=== PATIENT | female | born 1960 | race Caucasian/White ===

== ENCOUNTER → 2016-12-27 | Outpatient (CLI) | payer OTHER | LOC: FIMAGING 07:29 | PROVIDERS: ATTEND Radiology Diagnostic Radiology | DX: I83.892 Varicose veins of left lower extremity with other complications (principal) ==

== ENCOUNTER 2017-01-26 19:42 | Emergency (ER) | payer OTHER ==
[2017-01-26 19:48] VITALS: RESP 16; TEMP 97.9
--- NOTE | 2017-01-26 19:56 | CPEKG ---
Heart Rate: 79 RR Interval: 759 P-R Interval: 156 QRSD Interval: 84 QT Interval: 400 QTC Interval: 459 P [place]: 46 QRS [place]: 48 T Wave [place]: 44 EKG Severity - NORMAL ECG - EKG Impression: SINUS RHYTHM Electronically Signed By: Macho Baez 27-Jan-2017 16:26:29
--- NOTE | 2017-01-26 20:07 | EDPHY ---
HPI/HX/ROS/PE/MDM Narrative: CHIEF COMPLAINT: Chest pain, near-syncope HPI: The patient is a 56 y/o female arriving with her complaining of intermittent palpitations and dizziness for the last few weeks and new chest pain and near-syncope onset yesterday. She was evaluated by her doctor 2 weeks ago for this and her EKG was normal at that time. She has been on a Holter monitor for the last 8 days and states it has been alarming frequently. Sometimes her dizziness and palpitations are associated with near-syncope that resolves after a few seconds. She did not have associated chest pain until yesterday morning. She describes her pain as sharp at times and says it feels similar to heart burn. The sharp sensation only lasts a few seconds, but she has ongoing pain with breathing and intermittent radiation to her left shoulder. Tums did not alleviate her pain. Tonight, she was sitting on the couch and developed acute onset dizziness and near-syncope. This again resolved after a few seconds, but was associated with chest pain that radiated into her left shoulder, prompting her to come into the ED for evaluation. She does not have symptoms on initial assessment nor can she recreate them with deep breathing. She denies history of cardiac disease, diabetes, hypertension, or other cardiac risk factors. No history of clots or recent long travel. She does note a varicosity of my saphenous vein. She says the health technician told her she might have thrown a clot because the valves are not working. REVIEW OF SYSTEMS: Aside from elements discussed in the HPI, a comprehensive 10-point review of systems was reviewed and is negative. 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 , who is RN, at bedside. Lives in [place]. PCP: Dr. Machado PHYSICAL EXAM: General:Patient is alert, in no acute distress. ENT:Eyes are normal to inspection. ENT inspection normal. Neck: Normal inspection. Full range of motion. Respiratory:No respiratory distress. Breath sounds normal bilaterally. Cardiovascular: Regular rate and rhythm. Strong peripheral pulses. Normal cap refill. Abdomen:The abdomen is nontender to palpation. There are no peritoneal signs. Back: Normal to inspection. No tenderness to palpation. Skin: Normal color. No rash. Warm and dry. Extremities: Normal appearance. Full range of motion. Neuro: Oriented x3. Normal motor function. Normal sensory function. ED Course: IV established. Labs drawn including CBC, CHEM, troponin, d-dimer. Patient placed on quality assurance monitor. Chest x-ray ordered. Contacted [facility] for patient's Holter Monitor report. Since 01/18/17, the monitor has only recorded 4 events. Every event is a sinus rhythm and only one event shows a single PVC. Chest x-ray is negative. EKG shows normal sinus rhythm. D-dimer is negative. Troponin negative. Discussed work up with patient and answered all her questions. She feels ready to go home. I recommended follow up with her PCP and realty loan specialist next week for unimproved symptoms. She is comfortable with this plan. Return precautions given. MDM: This patient presents with several episodes of near-syncope and palpitations. Luckily, she has been using a Holter monitor, so I was able to retrieve this data, which rule out any potential life-threatening arrhythmia. We performed an extensive workup in the ED which is negative for signs of PE, ACS, hyperkalemia , ARF or anemia. The etiology of the patient's symptoms is unclear. She refused a chest CT. She will follow-up with her PCP and cardiology as an outpatient. She was offered admission to the hospital for further workup and observation, but she refuses. - Data Points Imaging Results: Imaging Impressions Chest X-Ray 01/26/17 20:09 Impression: Normal. Imaging: I viewed and interpreted images myself Laboratory Results: Laboratory Results 01/26/17 20:13 01/26/17 20:13 01/26/17 01/26/17 01/26/17 20:13 20:13 20:13 WBC 6.34 10^3/uL 10^3/uL (3.80-9.50) RBC 4.06 10^6/uL L 10^6/uL (4.18-5.33) Hgb 14.6 g/dL g/dL (12.6-16.3) Hct 41.9 % % (38.0-47.0) MCV 103.2 fL H fL (81.5-99.8) MCH 36.0 pg H pg (27.9-34.1) MCHC 34.8 g/dL g/dL (32.4-36.7) RDW 11.4 % L % (11.5-15.2) Plt Count 278 10^3/uL 10^3/uL (150-400) MPV 9.0 fL fL (8.7-11.7) Neut % (Auto) 38.9 % L % (39.3-74.2) Lymph % (Auto) 51.4 % H % (15.0-45.0) [place] % (Auto) 7.1 % % (4.5-13.0) Eos % (Auto) 1.6 % % (0.6-7.6) Baso % (Auto) 0.8 % % (0.3-1.7) Nucleat RBC Rel Count 0.0 % % (0.0-0.2) Absolute Neuts (auto) 2.47 10^3/uL 10^3/uL (1.70-6.50) Absolute Lymphs (auto) 3.26 10^3/uL H 10^3/uL (1.00-3.00) Absolute Monos (auto) 0.45 10^3/uL 10^3/uL (0.30-0.80) Absolute Eos (auto) 0.10 10^3/uL 10^3/uL (0.03-0.40) Absolute Basos (auto) 0.05 10^3/uL 10^3/uL (0.02-0.10) Absolute Nucleated RBC 0.00 10^3/uL 10^3/uL (0-0.01) Immature Gran % 0.2 % % (0.0-1.1) Immature Gran # 0.01 10^3/uL 10^3/uL (0.00-0.10) D-Dimer < 0.27 ug/mLFEU ug/mLFEU (0.00-0.50) Sodium 139 mEq/L mEq/L (134-144) Potassium 3.6 mEq/L mEq/L (3.5-5.2) Chloride 102 mEq/L mEq/L (97-110) Carbon Dioxide 26 mEq/l mEq/l (22-31) Anion Gap 11 mEq/L mEq/L (8-16) BUN 13 mg/dL mg/dL (7-23) Creatinine 0.7 mg/dL mg/dL (0.6-1.0) Estimated GFR > 60 Glucose 98 mg/dL mg/dL (70-100) Calcium 9.5 mg/dL mg/dL (8.5-10.4) Troponin I < 0.012 ng/mL ng/mL (0-0.034) Medications Given: Discontinued Medications Sodium Chloride (Ns) 1,000 mls @ 0 mls/hr IV ONCE ONE PRN Reason: Wide Open Stop: 01/26/17 20:10 Last Admin: 01/26/17 20:35 Dose: 1,000 mls General Time Seen by Provider: 01/26/17 19:48 Initial Vital Signs: Initial Vital Signs Temperature (C) 36.6 C 01/26/17 19:46 Heart Rate 78 01/26/17 19:46 Respiratory Rate 16 01/26/17 19:46 Blood Pressure 129/72 H 01/26/17 19:46 O2 Sat (%) 98 01/26/17 19:46 O2 Delivery Mode Room Air Allergies/Adverse Reactions: No Known Allergies Allergy (Unverified 01/26/17 19:45) Home Medications: Medication Instructions Recorded Estrogens, Conjugated 01/26/17 Progesterone 01/26/17 Valacyclovir 01/26/17 Departure - Departure Disposition: Home, Routine, Self-Care Clinical Impression: Chest pain, Syncope, near Condition: Good Instructions: Chest Pain (ED), Near Syncope (ED) Additional Instructions: 1. Follow up with your primary care provider or realty loan specialist for persistent symptoms on Monday. 2. Return to the ED for severe pain, fainting, shortness of breath, or other worsening of condition. Referrals: Almaz Machado MD [Primary Care Provider] - As per Instructions Macho Baez MD [Medical Doctor] - As per Instructions Report Scribed for: Иван Cole Report Scribed by: Suze Mejia Date of Report: 01/26/17 Time of Report: 20:43 Physician Review and Approval Statement: Portions of this note were transcribed by an ED scribe. I personally performed the history, physical exam, and medical decision making; and confirm the accuracy of the information in the transcribed note.
[2017-01-26] MEDS ORDERED: NS 1,000 ML IV ONE (20:09)
[2017-01-26 20:21] LABS: % IMMATURE GRANULYOCYTES 0.2 % (0.0-1.1); ABSOLUTE IMMATURE GRANULOCYTES 0.01 10^3/uL (0.00-0.10); ADD DIFF? NO; ADD MORPH? NO; ADD SCAN? NO; ATYPICAL LYMPHOCYTE FLAG 0 (0-99); FRAGMENT RBC FLAG 0 (0-99); HEMATOCRIT 41.9 % (38.0-47.0); HEMOGLOBIN 14.6 g/dL (12.6-16.3); LEFT SHIFT FLG 0 (0-99); LIPEMIA HEMOLYSIS FLAG 90 (0-99); MEAN CELL HEMOGLOBIN CONCENTR. 34.8 g/dL (32.4-36.7); MEAN CELL VOLUME 103.2 fL (81.5-99.8); PLATELET CLUMPS FLAG 10 (0-99); PLATELET COUNT 278 10^3/uL (150-400); RED BLOOD CELL COUNT 4.06 10^6/uL (4.18-5.33); RED CELL DISTRIBUTION WIDTH 11.4 % (11.5-15.2)
[2017-01-26 20:45] LABS: ANION GAP 11 mEq/L (8-16); CALCIUM 9.5 mg/dL (8.5-10.4); CARBON DIOXIDE 26 mEq/l (22-31); CHLORIDE 102 mEq/L (97-110); CREATININE 0.7 mg/dL (0.6-1.0); GLOMERULAR FILTRATION RATE > 60; GLUCOSE 98 mg/dL (70-100); POTASSIUM 3.6 mEq/L (3.5-5.2); SODIUM 139 mEq/L (134-144)
[2017-01-26 20:57] LABS: TROPONIN I < 0.012 ng/mL (0-0.034)
[2017-01-26 21:38] VITALS: BP 104/62; PULSE 65; O2SAT 96
== END 2017-01-26 21:38 | disposition home or self-care (01) ==
DX: R55 Syncope and collapse (principal); R07.9 Chest pain, unspecified

== ENCOUNTER → 2017-02-10 | Day surgery (SDC) | payer OTHER ==
[~2017-02-10] MED LIST: SODIUM TETRADECYL SULFATE 60 MG/2 ML VIAL IV ONE
== END | disposition home or self-care (01) ==
LOC: FIMAGING 13:04
PROVIDERS: ATTEND Radiology Diagnostic Radiology
PROC: 3E033TZ Introduction of Destructive Agent into Peripheral Vein, Percutaneous Approach (ICD-10-PCS; principal; 2017-02-10)
DX: I83.812 Varicose veins of left lower extremity with pain (principal)

== ENCOUNTER → 2017-03-13 | Outpatient (CLI) | payer OTHER | LOC: FIMAGING 15:53 | PROVIDERS: ATTEND Radiology Diagnostic Radiology | DX: I83.812 Varicose veins of left lower extremity with pain (principal) ==

== ENCOUNTER → 2017-11-24 | Outpatient (CLI) | payer OTHER | LOC: FIMAGING 14:48 | PROVIDERS: ATTEND Family Medicine | DX: Z12.31 Encounter for screening mammogram for malignant neoplasm of breast (principal) ==